=== PATIENT | female | born 1990 | race African-American/Black ===

== ENCOUNTER 2024-06-05 11:48 | Outpatient (CLI) | payer OTHER, SELFPAY ==
--- NOTE | 2024-06-05 | ECG_ITS ---
Test Date: 2024-06-05 12:19:00 Measurements Intervals [place] Rate: 57 P: 15 KS: 198 QRS: -64 QRSD: 90 T: -46 QT: 375 QTc: 366 Interpretive Statements SINUS BRADYCARDIA LEFT AXIS DEVIATION [QRS AXIS < -30] LOW QRS VOLTAGE IN PRECORDIAL LEADS [QRS DEFLECTION < 1.0 mV IN CHEST LEADS] MODERATE T-WAVE ABNORMALITY, CONSIDER ANTERIOR ISCHEMIA [-0.1+ mV T-WAVE IN V3/V4] No previous ECG available for comparison Electronically Signed On 06-05-2024 13:07:42 [employer] by Kristal Austin M.D.
--- NOTE | ~2024-06-05 | XR_ITS ---
XR chest 2V Ordering provider: Jerrica France History: 34 years Female with . 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 Comparison: None. FINDINGS: MEDIASTINUM: The cardiac silhouette is not enlarged. Device projected over the left hemithorax. LUNGS: No infiltrates, effusions or pneumothorax. OTHER: No free air under the diaphragm. IMPRESSION: No acute cardiopulmonary pathology. Reviewed, dictated and finalized at location A. R [employer]ATE [employer]
== END 2024-06-05 11:49 | disposition home or self-care (01) ==
DX: R94.31 Abnormal electrocardiogram [ECG] [EKG] (principal); R06.09 Other forms of dyspnea; R00.2 Palpitations
CPT/HCPCS: 71046; 93005; 93242

== ENCOUNTER 2024-08-12 09:28 | Outpatient (CLI) | payer OTHER, SELFPAY ==
--- OUTSIDE RECORDS SUMMARY | 2024-08-12 09:32 | XMS_ITS | Data Portability ---
[facility] [address] [place] [address] Assessment No assessment recorded. Plan of Treatment Reminders Order Date Submit Date Provider Last Modified By Organization Details Last Modified Time Details Appointments None recorded. Lab TSH, ultra-sensi tive, serum 2024 025 [facility], [address], [place], [address], 5 06:21:31 CBC w/ auto diff 2024 025 [facility], [address], [place], [address], 5 06:21:32 BMP, serum or plasma 2024 025 [facility], [address], [place], [address], 5 06:21:29 vaginal pathogens panel, CHAYITO+probe, vaginal fluid 2023 024 [facility], [address], [place], [address], 4 06:18:45 cytology report, thin prep, smear or scraping, cervical or vaginal 2023 024 [facility], [address], [place], [address], 4 17:10:00 unlisted lab - HBsAg+hcvab +HIV+TP abs 2023 024 RIAN Dailey, [address], [place], [address], 4 20:09:51 lh + FSH, serum 2023 024 RIAN Dailey, [address], [place], [address], 4 20:09:58 prolactin, serum 2023 024 RIAN Dailey, [address], [place], [address], 4 20:09:56 TSH + free T4, serum 2023 024 RIAN Dailey, [address], [place], [address], 4 20:09:50 TSH, serum or plasma 2023 024 RIAN Dailey, [address], [place], [address], 4 15:09:34 CBC 2023 024 RIAN Dailey, [address], [place], [address], 4 20:09:57 lipid panel, serum 2023 024 R[facility] Dailey, [address], [place], [address], 4 20:09:52 CMP, serum or plasma 2023 024 RIAN Dailey, [address], [place], [address], 4 20:09:53 HbA1c (hemoglobin A1c), blood 2023 024 [facility], [address], [place], [address], 4 20:09:55 Referral obstetricia n and gynecologis t referral 2024 025 [facility], [address], [place], [address], 5 16:16:31 Procedures None recorded. Surgeries None recorded. Imaging holter monitor - 3 day holter 2024 025 [facility], [address] [place] [address], [facility] [address], [place], [address], 5 19:44:27 XR, chest, 2 view 2024 025 [facility], [address] [place] [address], [facility] [address], [place], [address], 5 20:26:43 electrocard iogram 2024 025 [facility], [address] [place] [address], [facility] [address], [place], [address], 5 10:59:01 US, pelvis, transabdomi nal + transvagina l 2023 024 [email or web address] n1 [facility], [address] [facility] , [place], [address], 5 11:25:05 US, hysterosalp ingogram 2023 024 [email or web address] n1 [facility], [address] [facility], [address] [facility], [place], [address], 5 11:25:06 Medication Orders None recorded. Patient TargetsNo targets recorded. Patient Instructions Encounter Date Encounter Id Patient Instructions Last Modified By Organization Details Last Modified Time 05/31/2024 [id number] eating healthy foods: care instructions geno Not available 05/31/2024 10:09:22 I personally saw and examined the patient with the resident. I agree with the note and plan as documented. Shine Steinberg MD. 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 Referring Physician: Nathan Reed, Gi Tech, Encounter Date: 05/31/2024 Results Created Date Observation Date Name Description Value Unit Range Abnormal Flag Note LastModifiedBy Organization Detail LastModifiedTime 03/01/2003/02/2024 NUSWA B VAGIN ITIS PLUS (VG+) atopobium vaginae HIGH - 2 score abnormal Not Available [facility] ([facility]) [address] [place], [address], 03/03/2024 06:18:44 03/01/20 24 03/02/2024 NUSWA B VAGIN ITIS PLUS (VG+) bvab 2 LOW - 0 score Not Available [facility] ([facility]) [address] [facility], [place], [address], 03/03/2024 06:18:44 03/01/20 24 03/02/2024 NUSWA B VAGIN ITIS PLUS (VG+) megasphaera 1 LOW - 0 score Calcu late total score by irina g the 3 indiv idual bacte rial vagin osis (BV) marke r score s toget her. Total score is inter prete d as follo ws: Total score 0-1: Indic ates the absen ce of BV. Total score 2: Indet ermin ate for BV. Addit ional clini georgina data shoul d be evalu ated to estab cesra a diagn osis. Total score 3-6: Indic ates the prese nce of BV. Not Available [facility] ([facility]) [address] [facility], [place], [address], 03/03/2024 06:18:44 03/01/2003/02/2024 NUSWA B VAGIN ITIS PLUS (VG+) jennifer albicans, CHAYITO POSITI VE negati ve abnormal Not Available [facility] ([facility]) [address] [facility], [place], [address], 03/03/2024 06:18:44 03/01/2003/02/2024 NUSWA B VAGIN ITIS PLUS (VG+) jennifer glabrata, CHAYITO NEGATI VE negati ve Not Available [facility] ([facility]) [address] [facility], [place], [address], 03/03/2024 06:18:44 03/01/2003/03/2024 NUA B VAGIN ITIS PLUS (VG+) trich vag by CHAYITO NEGATI VE negati ve Not Available [facility] ([facility]) [address] [facility], [place], [address], 03/03/2024 06:18:44 03/01/2003/03/2024 NUA B VAGIN ITIS PLUS (VG+) chlamydia trachomatis, CHAYITO NEGATI VE negati ve Not Available [facility] ([facility]) [address] [facility], [place], [address], 03/03/2024 06:18:44 03/01/2003/03/2024 NUA B VAGIN ITIS PLUS (VG+) neisseria gonorrhoeae, CHAYITO NEGATI VE negati ve Not Available [facility] ([facility]) [address] [facility], [place], [address], 03/03/2024 06:18:44 03/01/2003/02/2024 INTER PRETA TION: interpretati on: Commen t Not infec lisbet with HCV unles s early or acute infec tion is suspe cted (whic h may be delay ed in an immun ocomp romis ed indiv idual ), or other evide nce exist s to indic ate HCV infec tion. Not Available [facility] ([facility]) [address] [facility], [place], [address], 03/03/2024 20:09:49 03/01/20 24 03/02/2024 TSH+F REE T4 TSH 1.880 uIU/m L 0.450- 4.500 Not Available [facility] ([facility]) [address] [facility], [place], [address], 03/03/2024 20:09:50 03/01/20 24 03/02/2024 TSH+F REE T4 T4,free(dire ct) 1.04 NG/dL 0.82-1 .77 Not Available [facility] ([facility]) [address] [facility], [place], [address], 03/03/2024 20:09:50 03/01/20 24 03/02/2024 HBSAG +HCVA B+HIV +TP ABS HBsAg screen NEGATI VE negati ve Not Available [facility] ([facility]) [address] [facility], [place], [address], 03/03/2024 20:09:51 03/01/20 24 03/02/2024 HBSAG +HCVA B+HIV +TP ABS HCV Ab NON REACTI VE nonrea ctive Not Available [facility] ([facility]) [address] [place], [address], 03/03/2024 20:09:51 03/01/20 24 03/02/2024 HBSAG +HCVA B+HIV +TP ABS HIV Ab/P24 Ag screen NON REACTI VE nonrea ctive HIV-1 /HIV- 2 antib odies and HIV-1 p24 antig en were NOT detec lisbet. There is no labor atory evide nce of HIV infec tion. HIV Negat nabil Not Available [facility] ([facility]) [address] [facility], [place], [address], 03/03/2024 20:09:51 03/01/2003/03/2024 HBSAG +HCVA B+HIV +TP ABS T pallidum antibodies NON REACTI VE nonrea ctive Not Available [facility] ([facility]) [address] [facility], [place], [address], 03/03/2024 20:09:51 03/01/20 24 03/02/2024 LIPID PANEL cholesterol, total 169 mg/dL 100-19 9 Not Available [facility] ([facility]) [address] [place], [address], 03/03/2024 20:09:52 03/01/2003/02/2024 LIPID PANEL triglyceride s 53 mg/dL 0-149 Not Available [facility] ([facility]) [address] [place], [address], 03/03/2024 20:09:52 03/01/20 24 03/02/2024 LIPID PANEL HDL cholesterol 78 mg/dL >39 Not Available [facility]) [address] [place], [address], 03/03/2024 20:09:52 03/01/20 24 03/02/2024 LIPID PANEL VLDL cholesterol georgina 11 mg/dL 5-40 Not Available [facility] ([facility]) [address] [place], [address], 03/03/2024 20:09:52 03/01/20 24 03/02/2024 LIPID PANEL LDL chol calc ([facility]) 80 mg/dL 0-99 Not Available [facility] ([facility]) [address] [place], [address], 03/03/2024 20:09:52 03/01/20 24 03/02/2024 COMP. METAB OLIC PANEL (14) glucose 74 mg/dL 70-99 Not Available [facility] ([facility]) [address] [place], [address], 03/03/2024 20:09:53 03/01/20 24 03/02/2024 COMP. METAB OLIC PANEL (14) BUN 13 mg/dL 6-20 Not Available [facility] ([facility]) [address] [facility], [place], [address], 03/03/2024 20:09:53 03/01/20 24 03/02/2024 COMP. METAB OLIC PANEL (14) creatinine 0.78 mg/dL 0.57-1 .00 Not Available [facility] ([facility]) [address] [facility], [place], [address], 03/03/2024 20:09:53 03/01/20 24 03/02/2024 COMP. METAB OLIC PANEL (14) eGFR 102 mL/mi n/1.7 3 >59 Not Available [facility] ([facility]) [address] [facility], [place], [address], 03/03/2024 20:09:53 03/01/20 24 03/02/2024 COMP. METAB OLIC PANEL (14) BUN/creatini ne ratio 17 9-23 Not Available [facility] ([facility]) [address] [facility], [place], [address], 03/03/2024 20:09:53 03/01/20 24 03/02/2024 COMP. METAB OLIC PANEL (14) sodium 139 mmol/ L 134-14 4 Not Available [facility] ([facility]) [address] [facility], [place], [address], 03/03/2024 20:09:53 03/01/20 24 03/02/2024 COMP. METAB OLIC PANEL (14) potassium 3.9 mmol/ L 3.5-5. 2 Not Available [facility] ([facility]) [address] [place], [address], 03/03/2024 20:09:53 03/01/20 24 03/02/2024 COMP. METAB OLIC PANEL (14) chloride 104 mmol/ L 96-106 Not Available [facility] ([facility]) [address] [facility] [place], [address], 03/03/2024 20:09:53 03/01/20 24 03/02/2024 COMP. METAB OLIC PANEL (14) carbon dioxide, total 21 mmol/ L 20-29 Not Available [facility] ([facility]) [address] [facility] [place], [address], 03/03/2024 20:09:53 03/01/20 24 03/02/2024 COMP. METAB OLIC PANEL (14) calcium 9.2 mg/dL 8.7-10 .2 Not Available [facility] ([facility]) [address] [place], [address], 03/03/2024 20:09:53 03/01/20 24 03/02/2024 COMP. METAB OLIC PANEL (14) protein, total 7.6 g/dL 6.0-8. 5 Not Available [facility] ([facility]) [address] [facility] [place], [address], 03/03/2024 20:09:53 03/01/20 24 03/02/2024 COMP. METAB OLIC PANEL (14) albumin 4.6 g/dL 3.9-4. 9 Not Available [facility] ([facility]) [address] [facility] [place], [address], 03/03/2024 20:09:53 03/01/20 24 03/02/2024 COMP. METAB OLIC PANEL (14) globulin, total 3.0 g/dL 1.5-4. 5 Not Available [facility] ([facility]) [address] [facility], [address], 03/03/2024 20:09:53 03/01/20 24 03/02/2024 COMP. METAB OLIC PANEL (14) bilirubin, total 0.5 mg/dL 0.0-1. 2 Not Available [facility] ([facility]) [address] [place], [address], 03/03/2024 20:09:53 03/01/20 24 03/02/2024 COMP. METAB OLIC PANEL (14) alkaline phosphatase 63 IU/L 44-121 Not Available [facility] ([facility]) [address] [place], [address], 03/03/2024 20:09:53 03/01/20 24 03/02/2024 COMP. METAB OLIC PANEL (14) AST (SGOT) 17 IU/L 0-40 Not Available [facility] ([facility]) [address] [place], [address], 03/03/2024 20:09:53 03/01/20 24 03/02/2024 COMP. METAB OLIC PANEL (14) ALT (SGPT) 19 IU/L 0-32 Not Available [facility] ([facility]) [address] [place], [address], 03/03/2024 20:09:53 03/01/20 24 03/02/2024 HEMOG LOBIN A1C hemoglobin A1C 5.3 % 4.8-5. 6 Predi abete s: 5.7 - 6.4 Diabe calvin: >6.4 Glyce ravindra contr ol for adult s with diabe calvin: <7.0 Not Available [facility] ([facility]) [address] [place], [address], 03/03/2024 20:09:54 03/01/20 24 03/02/2024 PROLA CTIN prolactin 14.3 NG/mL 4.8-33 .4 Not Available [facility] ([facility]) [address] [place], [address], 03/03/2024 20:09:56 03/01/20 24 03/02/2024 CBC, PLATE LET, NO DIFFE RENTI AL WBC 6.0 x10e3 /uL 3.4-10 .8 Not Available [facility] ([facility]) [address] [facility], [place], [address], 03/03/2024 20:09:57 03/01/20 24 03/02/2024 CBC, PLATE LET, NO DIFFE RENTI AL RBC 4.46 x10e6 /uL 3.77-5 .28 Not Available [facility] ([facility]) [address] [facility], [place], [address], 03/03/2024 20:09:57 03/01/2003/02/2024 CBC, PLATE LET, NO DIFFE RENTI AL hemoglobin 13.2 g/dL 11.1-1 5.9 Not Available [facility] ([facility]) [address] [facility], [place], [address], 03/03/2024 20:09:57 03/01/2003/02/2024 CBC, PLATE LET, NO DIFFE RENTI AL hematocrit 41.9 % 34.0-4 6.6 Not Available [facility] ([facility]) [address] [facility], [place], [address], 03/03/2024 20:09:57 03/01/20 24 03/02/2024 CBC, PLATE LET, NO DIFFE RENTI AL MCV 94 fL 79-97 Not Available [facility] ([facility]) [address] [facility], [place], [address], 03/03/2024 20:09:57 03/01/20 24 03/02/2024 CBC, PLATE LET, NO DIFFE RENTI AL MCH 29.6 pg 26.6-3 3.0 Not Available [facility] ([facility]) [address] [facility], [place], [address], 03/03/2024 20:09:57 03/01/20 24 03/02/2024 CBC, PLATE LET, NO DIFFE RENTI AL MCHC 31.5 g/dL 31.5-3 5.7 Not Available [facility] ([facility]) [address] [facility], [place], [address], 03/03/2024 20:09:57 03/01/20 24 03/02/2024 CBC, PLATE LET, NO DIFFE RENTI AL RDW 11.8 % 11.7-1 5.4 Not Available [facility] ([facility]) [address] [facility], [place], [address], 03/03/2024 20:09:57 03/01/20 24 03/02/2024 CBC, PLATE LET, NO DIFFE RENTI AL platelets 129 x10e3 /uL 150-45 0 below low normal Actua l plate let count may be somew hat highe r than repor lisbet due to aggre gatio n of plate lets in this sampl e. Not Available [facility] ([facility]) [address] [facility], [place], [address], 03/03/2024 20:09:57 03/01/20 24 03/02/2024 CBC, PLATE LET, NO DIFFE RENTI AL hematology comments: NOTE: Verif ied by jackie mccullough n. Not Available [facility] ([facility]) [address] [facility], [place], [address], 03/03/2024 20:09:57 03/01/20 24 03/02/2024 FSH AND LH LH 4.5 mIU/m L Adult Femal e Range Folli cular phase 2.4 - 12.6 Ovula tion phase 14.0 - 95.6 Lutea l phase 1.0 - 11.4 Postm enopa usal 7.7 - 58.5 Not Available [facility] ([facility]) [address] [place], [address], 03/03/2024 20:09:58 03/01/20 24 03/02/2024 FSH AND LH FSH 2.5 mIU/m L Adult Femal e Range Folli cular phase 3.5 - 12.5 Ovula tion phase 4.7 - 21.5 Lutea l phase 1.7 - 7.7 Postm enopa usal 25.8 - 134.8 Not Available [facility] ([facility]) [address] [facility], [place], [address], 03/03/2024 20:09:58 03/01/20 24 03/02/2024 IGP, APTIM A HPV, RFX 16/18 ,45 HPV aptima NEGATI VE negati ve This nucle ic acid ampli ficat ion test detec ts fourt een high- risk HPV types (16,1 8,31, 33,35 ,39,4 5,51, 52,56 ,58,5 9,66, 68) witho ut diffe renti ation . Not Available [facility] ([facility]) [address] [facility], [place], [address], 03/06/2024 17:09:59 03/01/2003/06/2024 IGP, APTIM A HPV, RFX 16/18 ,45 diagnosis: COMMEN T NEGAT NABIL FOR INTRA EPITH ELIAL LESIO N OR ZAMZAM MARIE . Not Available [facility] ([facility]) [address] [facility], [place], [address], 03/06/2024 17:09:59 03/01/2003/06/2024 IGP, APTIM A HPV, RFX 16/18 ,45 specimen adequacy: COMMEN T Satis facto ry for evalu ation . Endoc ervic al and/o r squam ous metap lasti c cells (endo cervi georgina compo nent) are prese nt. Not Available [facility] ([facility]) [address] [facility], [place], [address], 03/06/2024 17:09:59 03/01/20 24 03/06/2024 IGP, APTIM A HPV, RFX 16/18 ,45 clinician provided ICD10: COMMEN T Z01.4 19 N97.9 Not Available [facility] ([facility]) [address] [facility], [place], [address], 03/06/2024 17:09:59 03/01/2003/06/2024 IGP, APTIM A HPV, RFX 16/18 ,45 performed by: FLASH ramirez, Cytomelia cárdenas (ASCP ) Not Available [facility] ([facility]) [address] [place], [address], 03/06/2024 17:09:59 03/01/2003/06/2024 IGP, APTIM A HPV, RFX 16/18 ,45 . . Not Available [facility] ([facility]) [address] [facility], [place], [address], 03/06/2024 17:09:59 03/01/2003/06/2024 IGP, APTIM A HPV, RFX 16/18 ,45 note: FLASH Cárdenas The Pap smear is a scree bo test desig rolanda to aid in the detec tion of jaime ligna nt and malig nant condi tions of the uteri ne cervi x. It is not a diagn ostic proce dure and shoul d not be used as the sole means of detec ting cervi georgina cance r. Both false -posi tive and false -nega tive repor ts do occur . Not Available [facility] ([facility]) [address] [facility], [place], [address], 03/06/2024 17:09:59 03/01/2003/06/2024 IGP, APTIM A HPV, RFX 16/18 ,45 test methodology: FLASH Cárdenas This liqui d based ThinP rep(R ) pap test was scree rolanda with the use of an image guide david farah. Not Available [facility] ([facility]) [address] [facility], [place], [address], 03/06/2024 17:09:59 03/01/20 24 03/06/2024 IGP, APTIM A HPV, RFX 16/18 ,45 HPV genotype reflex COMMEN T Crite brittanie not met, HPV Genot ype not perfo rmed. Not Available [facility] ([facility]) [address] [facility], [place], [address], 03/06/2024 17:09:59 03/01/20 24 03/11/2024 THYRO ID STIMU LATIN G HORMO NE TSH-icma 1.8 uu/mL Refer ence Range : Non-P regna nt Adult 0.450 -4.50 0 Pregn edu First Trime ster 0.100 -4.00 0 Secon d Trime ster 0.200 -4.00 0 Third Trime ster 0.300 -4.50 0 Not Available [facility] [address] [facility], [place], [address], 03/11/2024 15:09:34 03/20/20 24 03/21/2024 D-DIM ER D-dimer 0.64 mg/L_ feu 0.00-0 .49 above high normal Accor ding to the assay manuf actur er's publi shed packa ge inser t, a trevor l (<0.5 0 mg/L FEU) D-dim er resul t in conju nctio n with a non-h igh clini georgina proba bilit y asses sment , exclu patricia deep vein throm bosis (DVT) and pulmo nary embol ism (PE) with high sensi tivit y. D-dim er value s incre ase with age and this can make VTE exclu nuvia of an older popul ation diffi cult. To addre ss this, the Ameri can Colle ge of Physi cians , based on best avail able evide nce and recen t guide lines , recom mends that clini cians use age-a djust ed D-dim er thres holds in patie nts great er than 50 years of age with: a) a low proba bilit y of PE who do not meet all Pulmo nary Embol ism Rule Out Crite brittanie, or b) in those with inter media te proba bilit y of PE. The formu la for an age-a djust ed D-dim er cut-o ff is age/ 100 . For examp le, a 60 year old patie nt would have an age-a djust ed cut-o ff of 0.60 mg/L FEU and an 80 year old 0.80 mg/L FEU. Not Available [facility] ([facility]) [address] [facility], [place], [address], 03/21/2024 10:37:01 03/20/2003/23/2024 PROTH ROMBI N TIME, INR prothrombin time 12.5 sec above high normal Refer ence Range : 18 years and older : 9.1 - 12.0 Not Available [facility] [address] [place], [address], 03/24/2024 03:08:41 03/20/2003/23/2024 PROTH ROMBI N TIME, INR INR 1.1 ratio Refer ence Range : >1 month : 0.9 - 1.2 Not Available [facility] [address] [place], [address], 03/24/2024 03:08:41 03/20/20 24 03/21/2024 VITAM IN B12 AND FOLAT E vitamin B12 685 pg/mL 232-12 45 Not Available [facility] [address] [place], [address], 03/24/2024 03:08:42 03/20/2003/21/2024 VITAM IN B12 AND FOLAT E folate (folic acid), serum 12.1 NG/mL >3.0 A serum folat e tono ntrat ion of less than 3.1 ng/mL is consi dered to repre sent clini georgina defic iency . Not Available [facility] [address] [place], [address], 03/24/2024 03:08:42 03/20/2003/21/2024 LDH LDH 176 IU/L 119-22 6 Not Available [facility] [address] [place], [address], 03/24/2024 03:08:43 03/20/2003/21/2024 FIBRI NOGEN ACTIV ITY fibrinogen activity 221 mg/dL 193-50 7 Not Available [facility] [address] [place], [address], 03/24/2024 03:08:44 03/20/2003/21/2024 CBC WITH DIFFE RENTI AL/PL ATELE T WBC 3.9 x10e3 /uL 3.4-10 .8 Cecile ified by daquan bowen Not Available [facility] [address] [place], [address], 03/24/2024 03:08:45 03/20/2003/21/2024 CBC WITH DIFFE RENTI AL/PL ATELE T RBC 4.55 x10e6 /uL 3.77-5 .28 Not Available [facility] [address] [place], [address], 03/24/2024 03:08:45 03/20/2003/21/2024 CBC WITH DIFFE RENTI AL/PL ATELE T hemoglobin 13.6 g/dL 11.1-1 5.9 Not Available [facility] [address] [place], [address], 03/24/2024 03:08:45 03/20/2003/21/2024 CBC WITH DIFFE RENTI AL/PL ATELE T hematocrit 42.1 % 34.0-4 6.6 Not Available [facility] [address] [place], [address], 03/24/2024 03:08:45 03/20/20 24 03/21/2024 CBC WITH DIFFE RENTI AL/PL ATELE T MCV 93 fL 79-97 Not Available [facility] [address] [place], [address], 03/24/2024 03:08:45 03/20/20 24 03/21/2024 CBC WITH DIFFE RENTI AL/PL ATELE T MCH 29.9 pg 26.6-3 3.0 Not Available [facility] [address] [place], [address], 03/24/2024 03:08:45 03/20/20 24 03/21/2024 CBC WITH DIFFE RENTI AL/PL ATELE T MCHC 32.3 g/dL 31.5-3 5.7 Not Available [facility] [address] [place], [address], 03/24/2024 03:08:45 03/20/2003/21/2024 CBC WITH DIFFE RENTI AL/PL ATELE T RDW 12.1 % 11.7-1 5.4 Not Available [facility] [address] [place], [address], 03/24/2024 03:08:45 03/20/20 24 03/21/2024 CBC WITH DIFFE RENTI AL/PL ATELE T platelets 127 x10e3 /uL 150-45 0 below low normal Actua l plate let count may be somew hat highe r than repor lisbet due to aggre gatio n of plate lets in this sampl e. Not Available [facility] [address] [place], [address], 03/24/2024 03:08:45 03/20/2003/21/2024 CBC WITH DIFFE RENTI AL/PL ATELE T neutrophils 27 % notest ab. Not Available [facility] [address] [place], [address], 03/24/2024 03:08:45 03/20/20 24 03/21/2024 CBC WITH DIFFE RENTI AL/PL ATELE T lymphs 56 % notest ab. Not Available [facility] [address] [place], [address], 03/24/2024 03:08:45 03/20/20 24 03/21/2024 CBC WITH DIFFE RENTI AL/PL ATELE T monocytes 8 % notest ab. Not Available [facility] [address] [place], [address], 03/24/2024 03:08:45 03/20/2003/21/2024 CBC WITH DIFFE RENTI AL/PL ATELE T eos 7 % notest ab. Not Available [facility] [address] [place], [address], 03/24/2024 03:08:45 03/20/20 24 03/21/2024 CBC WITH DIFFE RENTI AL/PL ATELE T basos 2 % notest ab. Not Available [facility] [address] [place], [address], 03/24/2024 03:08:45 03/20/20 24 03/21/2024 CBC WITH DIFFE RENTI AL/PL ATELE T neutrophils (absolute) 1.1 x10e3 /uL 1.4-7. 0 below low normal Not Available [facility] [address] [place], [address], 03/24/2024 03:08:45 03/20/20 24 03/21/2024 CBC WITH DIFFE RENTI AL/PL ATELE T lymphs (absolute) 2.2 x10e3 /uL 0.7-3. 1 Not Available [facility] [address] [place], [address], 03/24/2024 03:08:45 03/20/20 24 03/21/2024 CBC WITH DIFFE RENTI AL/PL ATELE T monocytes(ab solute) 0.3 x10e3 /uL 0.1-0. 9 Not Available [facility] [address] [place], [address], 03/24/2024 03:08:45 03/20/2003/21/2024 CBC WITH DIFFE RENTI AL/PL ATELE T eos (absolute) 0.3 x10e3 /uL 0.0-0. 4 Not Available [facility] [address] [place], [address], 03/24/2024 03:08:45 03/20/2003/21/2024 CBC WITH DIFFE RENTI AL/PL ATELE T baso (absolute) 0.1 x10e3 /uL 0.0-0. 2 Not Available [facility] [address] [place], [address], 03/24/2024 03:08:45 03/20/20 24 03/21/2024 CBC WITH DIFFE RENTI AL/PL ATELE T immature granulocytes 0 % notest ab. Not Available [facility] [address] [place], [address], 03/24/2024 03:08:45 03/20/2003/21/2024 CBC WITH DIFFE RENTI AL/PL ATELE T immature grans (abs) 0.0 x10e3 /uL 0.0-0. 1 Not Available [facility] [address] [place], [address], 03/24/2024 03:08:45 03/20/2003/21/2024 CBC WITH DIFFE RENTI AL/PL ATELE T hematology comments: NOTE: Verif ied by jackie mccullough n. Not Available [facility] [address] [place], [address], 03/24/2024 03:08:45 03/20/2003/21/2024 PT AND PTT INR 1.1 0.9-1. 2 Refer ence inter jana is for non-a ntico agula lisbet patie nts. Sugge sted INR thera peuti c range for Vitam in K antag onist thera py: Stand sanju Dose (mode rate inten sity thera peuti c range ): 2.0 - 3.0 Highe r inten sity thera peuti c range 2.5 - 3.5 Not Available [facility] [address] [place], [address], 03/24/2024 03:08:47 03/20/20 24 03/21/2024 PT AND PTT prothrombin time 12.2 sec 9.1-12 .0 above high normal Not Available [facility] [address] [place], [address], 03/24/2024 03:08:47 03/20/20 24 03/21/2024 PT AND PTT APTT 29 sec 24-33 This test has not been valid ated for monit oring unfra ction ated hepar in thera py. aPTT- based thera peuti c range s for unfra ction ated hepar in thera py have not been estab gulshan rose For gener al guide lines on Hepar in monit oring , refer to the [facility]. Not Available [facility] [address] [place], [address], 03/24/2024 03:08:47 05/31/19 25 06/01/2024 BASIC METAB OLIC PANEL (8) glucose 84 mg/dL 70-99 Not Available [facility] ([facility]) [address] [place], [address], 06/01/2024 06:21:29 05/31/19 25 06/01/2024 BASIC METAB OLIC PANEL (8) BUN 8 mg/dL 6-20 Not Available [facility] ([facility]) [address] [place], [address], 06/01/2024 06:21:29 05/31/1906/01/2024 BASIC METAB OLIC PANEL (8) creatinine 0.76 mg/dL 0.57-1 .00 Not Available [facility] ([facility]) [address] [place], [address], 06/01/2024 06:21:29 05/31/19 25 06/01/2024 BASIC METAB OLIC PANEL (8) eGFR 105 mL/mi n/1.7 3 >59 Not Available [facility] ([facility]) [address] [facility], [address], 06/01/2024 06:21:29 05/31/1906/01/2024 BASIC METAB OLIC PANEL (8) BUN/creatini ne ratio 11 9-23 Not Available [facility] ([facility]) [address] [facility] [place], [address], 06/01/2024 06:21:29 05/31/1906/01/2024 BASIC METAB OLIC PANEL (8) sodium 140 mmol/ L 134-14 4 Not Available [facility] ([facility]) [address] [facility] [place], [address], 06/01/2024 06:21:29 05/31/1906/01/2024 BASIC METAB OLIC PANEL (8) potassium 4.1 mmol/ L 3.5-5. 2 Not Available [facility] ([facility]) [address] [facility] [place], [address], 06/01/2024 06:21:29 05/31/1906/01/2024 BASIC METAB OLIC PANEL (8) chloride 106 mmol/ L 96-106 Not Available [facility] ([facility]) [address] [facility] [place], [address], 06/01/2024 06:21:29 01/08/06/01/2024 BASIC METAB OLIC PANEL (8) carbon dioxide, total 25 mmol/ L 20-29 Not Available [facility] ([facility]) [address] [place], [address], 06/01/2024 06:21:29 05/31/19 25 06/01/2024 BASIC METAB OLIC PANEL (8) calcium 9.4 mg/dL 8.7-10 .2 Not Available [facility] ([facility]) [address] [facility], [place], [address], 06/01/2024 06:21:29 05/31/1906/01/2024 TSH RFX ON ABNOR MAL TO FREE T4 TSH 4.250 uIU/m L 0.450- 4.500 Not Available [facility] ([facility]) [address] [place], [address], 06/01/2024 06:21:31 05/31/19 25 05/31/2024 CBC WITH DIFFE RENTI AL/PL ATELE T WBC 3.5 x10e3 /uL 3.4-10 .8 Not Available [facility] ([facility]) [address] [place], [address], 06/01/2024 06:21:32 05/31/19 25 05/31/2024 CBC WITH DIFFE RENTI AL/PL ATELE T RBC 4.02 x10e6 /uL 3.77-5 .28 Not Available [facility] ([facility]) [address] [place], [address], 06/01/2024 06:21:32 05/31/19 25 05/31/2024 CBC WITH DIFFE RENTI AL/PL ATELE T hemoglobin 12.1 g/dL 11.1-1 5.9 Not Available [facility] ([facility]) [address] [place], [address], 06/01/2024 06:21:32 05/31/19 25 05/31/2024 CBC WITH DIFFE RENTI AL/PL ATELE T hematocrit 37.2 % 34.0-4 6.6 Not Available [facility] ([facility]) [address] [place], [address], 06/01/2024 06:21:32 05/31/19 25 05/31/2024 CBC WITH DIFFE RENTI AL/PL ATELE T MCV 93 fL 79-97 Not Available [facility] ([facility]) [address] [place], [address], 06/01/2024 06:21:32 05/31/1905/31/2024 CBC WITH DIFFE RENTI AL/PL ATELE T MCH 30.1 pg 26.6-3 3.0 Not Available [facility] ([facility]) [address] [place], [address], 06/01/2024 06:21:32 05/31/19 25 05/31/2024 CBC WITH DIFFE RENTI AL/PL ATELE T MCHC 32.5 g/dL 31.5-3 5.7 Not Available [facility] ([facility]) [address] [place], [address], 06/01/2024 06:21:32 05/31/1905/31/2024 CBC WITH DIFFE RENTI AL/PL ATELE T RDW 12.0 % 11.7-1 5.4 Not Available [facility] ([facility]) [address] [place], [address], 06/01/2024 06:21:32 05/31/1905/31/2024 CBC WITH DIFFE RENTI AL/PL ATELE T platelets 136 x10e3 /uL 150-45 0 below low normal Not Available [facility] ([facility]) [address] [place], [address], 06/01/2024 06:21:32 05/31/19 25 05/31/2024 CBC WITH DIFFE RENTI AL/PL ATELE T neutrophils 34 % notest ab. Not Available [facility] ([facility]) [address] [facility], [place], [address], 06/01/2024 06:21:32 05/31/19 25 05/31/2024 CBC WITH DIFFE RENTI AL/PL ATELE T lymphs 48 % notest ab. Not Available [facility] ([facility]) [address] [facility], [place], [address], 06/01/2024 06:21:32 05/31/19 25 05/31/2024 CBC WITH DIFFE RENTI AL/PL ATELE T monocytes 9 % notest ab. Not Available [facility] ([facility]) [address] [facility], [place], [address], 06/01/2024 06:21:32 05/31/19 25 05/31/2024 CBC WITH DIFFE RENTI AL/PL ATELE T eos 8 % notest ab. Not Available [facility] ([facility]) [address] [facility], [place], [address], 06/01/2024 06:21:32 05/31/19 25 05/31/2024 CBC WITH DIFFE RENTI AL/PL ATELE T basos 1 % notest ab. Not Available [facility] ([facility]) [address] [facility], [place], [address], 06/01/2024 06:21:32 05/31/1905/31/2024 CBC WITH DIFFE RENTI AL/PL ATELE T neutrophils (absolute) 1.2 x10e3 /uL 1.4-7. 0 below low normal Not Available [facility] ([facility]) [address] [facility], [place], [address], 06/01/2024 06:21:32 05/31/19 25 05/31/2024 CBC WITH DIFFE RENTI AL/PL ATELE T lymphs (absolute) 1.7 x10e3 /uL 0.7-3. 1 Not Available [facility] ([facility]) [address] [facility], [place], [address], 06/01/2024 06:21:32 05/31/19 25 05/31/2024 CBC WITH DIFFE RENTI AL/PL ATELE T monocytes(ab solute) 0.3 x10e3 /uL 0.1-0. 9 Not Available [facility] ([facility]) [address] [facility], [place], [address], 06/01/2024 06:21:32 05/31/19 25 05/31/2024 CBC WITH DIFFE RENTI AL/PL ATELE T eos (absolute) 0.3 x10e3 /uL 0.0-0. 4 Not Available [facility] ([facility]) [address] [facility], [place], [address], 06/01/2024 06:21:32 05/31/19 25 05/31/2024 CBC WITH DIFFE RENTI AL/PL ATELE T baso (absolute) 0.1 x10e3 /uL 0.0-0. 2 Not Available [facility] ([facility]) [address] [facility], [place], [address], 06/01/2024 06:21:32 05/31/19 25 05/31/2024 CBC WITH DIFFE RENTI AL/PL ATELE T immature granulocytes 0 % notest ab. Not Available [facility] ([facility]) [address] [facility], [place], [address], 06/01/2024 06:21:32 05/31/19 25 05/31/2024 CBC WITH DIFFE RENTI AL/PL ATELE T immature grans (abs) 0.0 x10e3 /uL 0.0-0. 1 Not Available [facility] ([facility]) [address] [facility], [place], [address], 06/01/2024 06:21:32 02/07/19/2024 Proge stero ne [Mass /volu me] in Serum or Plasm a progesterone proge stero ne Not Available Not Available 07/25/2024 14:43:28 06/05/1906/05/2024 XR, chest , 2 view No observ ation record ed. [facility] [address], [place], [address], 06/14/2024 11:23:32 06/06/19 25 06/05/2024 elect rocar diogr am No observ ation record ed. [facility] (Pulmonary) [address], [place], [address], 06/14/2024 11:23:33 06/13/19 25 06/05/2024 todd r monit or No observ ation record ed. [facility] (Pulmonary) [address], [place], [address], 06/15/2024 10:05:13 Result Notes None recorded. Problems Name Problem SNOMED Code Status Onset Date Resolution Date Notes Provider Name and Address Organization Details Recorded Time Bacterial vaginosis 298030877 Active 2023 NATHAN REED DO Attn: Stepan mcnamara,[address] [place], [address], [facility] - [facility] 5 10:27:37 Candidiasis of vagina 02869964 Active 2023 NATHAN REED DO Attn: Stepan mcnamara,[address] [place], [address], [place] - [facility] 5 10:27:37 Thrombocytopen ic disorder 379103203 Active 2023 NATHAN REED DO Attn: Stepan mcnamara,[address] [place], [address], [facility] - [facility] 5 10:27:52 Palpitations 17352999 Active 2024 NATHAN REED DO Attn: Stepan mcnamara,[address] [place], [address], [place] - [facility] 5 10:27:49 Dyspnea on exertion 97876857 Active 2024 NATHAN REED DO Attn: Stepan mcnamara,[address] [facility], [place], [address], [place] - [facility] 5 10:27:47 Obstruction of right fallopian tube 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 Procedures Surgical History Date Name Laterality Status Provider Name and Address Organization Details Recorded Time hemorrhoidectomy completed Mercy Alfaro MA MD - [facility] 03/01/2024 11:25:21 Imaging Results Imaging Date Name Status LastModified by Organization Details LastModified Time 06/05/2024 XR, chest, 2 view completed [address], [address], 06/14/2024 11:23:32 06/05/[address] [facility] (Pulmonary) [address] [place] [address], [address], 06/14/2024 11:23:33 06/05/2024 holter monitor completed [facility] (Pulmonary) [address] [place] [address], [address], 06/15/2024 10:05:13 Procedure Notes None recorded. Medical Equipment None Reported. Allergies No known drug allergies Medications Name Sig Start Date Stop Date Status Note LastModified by Organization Details LastModified Time fluconazole 150 mg tablet TAKE ONE TABLET BY MOUTH FOR INFECTION 05/31 completed Not Available Not Available Not Available metronidazo le 500 mg tablet TAKE 1 TABLET BY MOUTH TWICE DAILY FOR 7 DAYS FOR INFECTION 05/31 completed Not Available Not Available Not Available folic acid active Not Available Not Av ailable Not Available Vitals Date Recorded Body height Body mass index (BMI) Body weight Heart rate Respiratory rate Body temperature Systolic blood pressure Diastolic blood pressure Provider Name and Address Organization Details Last Updated DateTime 4 162.56 cm 17.6 kg/m2 28133.8 7 g 68 /min 18 /min 98.3 [degF] 110 mm[Hg] 73 mm[Hg] Mercy Alfaro MA [facility] 4 11:21:15 Date Recorded Body height Body mass index (BMI) Body weight Heart rate Respiratory rate Body temperature Systolic blood pressure Diastolic blood pressure Provider Name and Address Organization Details Last Updated DateTime 4 162.56 cm 18.1 kg/m2 73664 g 64 /min 18 /min 98.3 [degF] 109 mm[Hg] 74 mm[Hg] Mercy Alfaro MA [facility] 4 15:01:22 Date Recorded Body height Body mass index (BMI) Body weight Body temperature Oxygen saturation Oxygen saturation in Arterial blood by Pulse oximetry Respiratory rate Heart rate Systolic blood pressure Diastolic blood pressure Provider Name and Address Organization Details Last Updated DateTime 5 162.56 cm 18.3 kg/m2 81307.2 4 g 98.3 [degF] 97 % 97 % 20 /min 80 /min 108 mm[Hg] 71 mm[Hg] Mercy Alfaro MA [facility] 5 09:32:54 Social History Question Answer Notes LastModified by Organizat ion Details LastModified Time Tobacco Smoking Status Never Smoker Mercy Alfaro MA [facility], [facility] 03/01/2024 11:23:38 What Was The Date Of Your Most Recent Tobacco Screening? 05/31/2024 Information not available 05/31/2024 Has Tobacco Cessation Counseling Been Provided? Yes Information not available 03/01/2024 On What Date Was Tobacco Cessation Counseling Provided? 05/31/2024 Information not available 05/31/2024 Sex: Female Functional Status None recorded. Mental Status None recorded. Family History Nothing Reported. Medical History Condition Response Coronary Artery Disease N Other N High Blood Pressure N Atrial Fibrillation N Thyroid Problems N Kidney or Bladder Problems N GI Problems N Depression N COPD N Blood Clots N Have you had a mammogram in the last yea r? N Skin Problems N Eating Disorder N Anemia N Heart Attack ([place]) N Anxiety Disorder N Diabetes N Muscle, Joint, or Bone Problems N Arthritis N Seizures/Epilepsy N Have you had a colonoscopy in the last 1 0 years? N Acid Reflux (GERD) N Cancer N Stroke N Asthma N Allergies N Have you had a PSA blood test in the las t year? N ADHD N Substance Abuse N High Cholesterol N Hepatitis N Liver Disease N Schizophrenia N Headaches N Heart Failure N Osteoporosis N Gynecological History Statement/Question Response Date of LMP 05/29/2024 Age at First Child 14 Obstetrics History GPAL:G 0 P 0 0 0 0 Past Encounters Encounter ID Performer Location Encounter Start Date Encounter Closed Date Diagnosis/Indication Diagnosis SNOMED-CT Code Diagnosis ICD10 Code Diagnosis Note [id number] MD Ki Martinez 14 [address] [facility] [address] [place] [address] 03/01/2024 10:58:11 03/24/2024 12:46:53 Family planning surveillance 539704248 Z30.09 Ingrid is a 34 y/o G0 who presents to the clinic with her to discuss family planning. Couple have been trying for over 2 years, the duration of there marriage.- anticipato ry guidance, reassuranc e and education provided- surveillan ce labs pending- HSG pending- abdominal US pending- Pap and cultures pending- follow up pending results and/or as scheduled Fertility problem 201519 06 N97.9 Dyspareunia 87476433 N94 .10 Gynecologi c examination 77269627 Z01.804 [id number] MD Ki Martinez 14 IM 4 [facility] [address] [place], [place] [address] [address] 03/28/2024 14:50:25 04/10/2024 10:04:57 Thrombocytopenic disorder 670257413 D69.6 Family kit nning surveillance [id number] Z30.09 Ingrid is a 34 y/o G0 who presents to the clinic with her for follow-up discussion onfamily planning. Couple have been trying for over 2 years, the duration of there marriage. Review of labs consistent with thrombocyt openia that is most likely idiopathic . Patient vaginal swabs were positive for bacterial vaginosis and Jennifer which were adequately treated. Patient has undergone semen analysis earlier today. Results are pending.- anticipato ry guidance, reassuranc e and education provided-l abs reviewed- HSG remains pending- abdominal US remains pending-Pe nding results of imaging studies anticipate possible initiation of medication s such as Clomid, metformin- follow up pending results and/or as scheduled Fertility problem 800084 06 N97.9 [id number] LINDY Haskins 14 IM [address] [facility] [address] [place] [address] 05/31/2024 09:13:28 06/01/2024 10:13:50 Palpitations 49576569 R00.2 DDX: anxiety, cardiac, electrolyt e abnormalit ies, thyroid, anemiaIf it were anxiety, likely would not be just with exertionWi ll obtain labs since new symptoms since last labs in ain Holter, ECG and chest xrayGiven only with exertion, if work up negative consider treadmill stress test Obstructio n of right fallopian tube 347614938 N97.1 Non opacified right fallopian tube. Otherwise, normal hysterosal pingogram. Not convinced this is contributi ng to her infertilit y issuesWill send referral to OBGYN for further eval Dyspnea on exertion 6084 5006 R06.09 DDX: anxiety, cardiac, electrolyt e abnormalit ies, thyroid, anemiaWill obtain labs, new symptoms since last labs in ain Holter, ECG and chest xrayGiven only with exertion, if work up negative consider treadmill stress test Underweight 617472814 R6 3.6 Healthy lifestyle encouraged including regular exercise of at least 150min per week, diet rich in plant based foods and low in added sugars, processed carbohydra calvin, and high salt foods. Encouraged protein intake mostly with chicken and white fish and limited red meat. Health Concerns Section Related Observation LastModified by Organization Detai ls LastModified Time None Recorded Concern Status LastModified by Organization Details LastModified Time None Recorded Advance Directives Directive None Recorded Payers Encounter Date Sequence Insurance Name Policy Number Policy Lui Covered Member ID Lui Member ID Guarantor Name 03/01/2024 1 [facility] Carlos Eduardo Viera [id number] Ingrid Murphy 03/28/2024 1 [facility] Carlos Eduardo Viera [id number] Ingrid Murphy 05/31/2024 1 [facility] [id number] Ingrid Murphy [id number] Ingrid Murphy 05/31/2024 2 *SELF PAY* Rosalinda Murphy Notes Date Note Type Note Provider Name and Address Organization Details Recorded Time 03/01/2024 text/html Ingrid is a 34 y/ o G0 who presents to the clinic with her to discuss family planning. Couple have been trying for over 2 years, the duration of there marriage. Patient reports regular periods and that her and have been intentional about sexual intercourse during ovulatory time. Patient reports increasing abdominal pain with periods and starting to have pain with intercourse. She denies abnormal vaginal discharge, fever/chills, nausea/vomiting. She has a hx of hemorrhoidal surgery, but other cortez no abdominal procedures. Patient reports that she is taking daily folic accid Janel Decker MD Attn: Accounting,[address] [place], [address], [facility] 03/20/2024 00:13:42 03/28/2024 text/html Ingrid is a 34 y/ o G0 who presents to the clinic with her for follow-up discussion onfamily planning. Couple have been trying for over 2 years, the duration of there marriage. Review of labs consistent with thrombocytopenia that is most likely idiopathic. Patient vaginal swabs were positive for bacterial vaginosis and Jennifer which were adequately treated. Patient has undergone semen analysis earlier today. Janel Decker MD Attn: Accounting,[address] [facility], [place], [address], [facility] - [facility] 04/09/2024 13:45:55 05/31/2024 text/html 34 yo F presents to clinic for SOB and palpitations with exertion for last 3 weeks. Mainly with walking, washing dishes, etc. Does not happen every time or every day but multiple times a week. This is new for her. Came on suddenly and there was no inciting factor. When it happens, it almost feels like she has to cough.No chest pain. They are trying to conceive for 3 years and that has been stressful for her. There has been a lot of testing done in the last few weeks and that has been stressful. Had HSG yesterday which showed possibly blocked right fallopian tube. Jazmin Ferro MA [facility], [place] - [facility] 06/08/2024 11:47:40 OBGyn Episode No OBEpisode recorded.
--- OUTSIDE RECORDS SUMMARY | 2024-08-12 09:32 | XMS_ITS | Referral Summary ---
Author Organization [facility] Healthcare Address [address] [place] [address] Care Team Providers Care Medical Technologist Hematology Name Role Phone Unknown, Notinfile Primary Care Provider Unavail able Encounters Date Type Department Care Team Description 05/30/2024 9:20 AM NITRATING ACID MIXER - 05/30/2024 11:59 PM NITRATING ACID MIXER Hospital Encounter [facility] Counts include 234 beds at the [facility] [place] [address] Primary female infertility Discharge Disposition: Discharge to home or self care from Last 3 Months Allergies No known active allergies Social History Tobacco Use Types Packs/Day Years Used Date Smoking Tobacco: Never Assessed Comments Unknown Sex and Gender Information Value Date Recorded Sex Assigned at Not on file Legal Sex Female 11:06 AM CDT Gender Identity Not on file Sexual Orientation Not on file Plan of Treatment Not on file Procedures Procedure Name Priority Date/Time Associated Diagnosis Comments HYSTEROSALPINGOGRAM Schedule Routine, Read Routine (OP Routine) 05/30/2024 10:39 AM NITRATING ACID MIXER Primary female infertility POCT HCG, URINE Routine 05/30/2024 9:36 AM NITRATING ACID MIXER from Last 3 Months Results * FL Hysterosalpingogram (05/30/2024 10:39 AM NITRATING ACID MIXER) Anatomical Region Laterality Modality Body, Pelvis N/A Radio Fluoroscop y 05/30/2024 11:0 8 AM NITRATING ACID MIXER Impressions 05/30/2024 12:10 PM NITRATING ACID MIXER Nonopacified right fallopian tube. Otherwise, normal hysterosalpingogram. Dictated by: Alayna Orellana M.D. The radiology attending physician has personally reviewed this study, and had reviewed and/or edited this written report and agrees with it. Electronically signed by: Sara Youssef M.D. Narrative 05/30/2024 12:10 PM NITRATING ACID MIXER EXAMINATION: HYSTEROSALPINGOGRAM HISTORY: 34 year old woman, on day 8 of her menstrual cycle. Diagnostic evaluation of the fallopian tubes and uterine cavity for infertility. TECHNIQUE: Using sterile technique, a speculum was inserted into the vagina and the cervix swabbed with Betadine solution. A hysterocatheter was placed and Conray 60 was injected into the uterus. Fluoroscopic images of the pelvis were obtained. The patient tolerated the procedure well without complication. Dr. Sara Youssef M.D., the attending radiologist, was present from the beginning to the end of the procedure. FINDINGS: Endocervical canal: The endocervical canal is normal in appearance. Uterus: The uterus demonstrates neutral version. There are no filling defects, and the uterine contour is normal. Fallopian tubes: The left fallopian tube is normal in contour, with peritoneal spillage. The right fallopian tube is not opacified on this examination. Procedure Note Sara Youssef MD - 05/30/2024 EXAMINATION: HYSTEROSALPINGOGRAM HISTORY: 34 year old woman, on day 8 of her menstrual cycle. Diagnostic evaluation of the fallopian tubes and uterine cavity for infertility. TECHNIQUE: Using sterile technique, a speculum was inserted into the vagina and the cervix swabbed with Betadine solution. A hysterocatheter was placed and Conray 60 was injected into the uterus. Fluoroscopic images of the pelvis were obtained. The patient tolerated the procedure well without complication. Dr. Sara Youssef M.D., the attending radiologist, was present from the beginning to the end of the procedure. FINDINGS: Endocervical canal: The endocervical canal is normal in appearance. Uterus: The uterus demonstrates neutral version. There are no filling defects, and the uterine contour is normal. Fallopian tubes: The left fallopian tube is normal in contour, with peritoneal spillage. The right fallopian tube is not opacified on this examination. IMPRESSION: Nonopacified right fallopian tube. Otherwise, normal hysterosalpingogram. Dictated by: Alayna Esteban, M.D. The radiology attending physician has personally reviewed this study, and had reviewed and/or edited this written report and agrees with it. Electronically signed by: Sara Youssef M.D. Janel Burger MD IMG FLUOROSCOPY PROCEDURES Final Result * POCT hCG, urine (05/30/2024 9:36 AM NITRATING ACID MIXER) HCG, ur, POC Negative Negative Lot Number [id number] QC Backgroud Clear Acceptable QC Control Line Acceptable Urine 05/30/2024 9:36 AM NITRATING ACID MIXER Janel Burger MD POINT OF CARE TEST ORDERABL ES Final Result from Last 3 Months Insurance [employer] [facility] H[employer]/PPO Address: [address] [address] [employer] [facility] [employer]/PPO Address: [facility] [address] [place] [address] Care Teams Medical Technologist Hematology Relationship Specialty Start Date End Date Unknown, Notinfile PCP - General 05/30/24
--- OUTSIDE RECORDS SUMMARY | 2024-08-12 09:32 | XMS_ITS | Data Portability ---
Author Organization [facility] [place] Address [address] [place] [address] Assessment Encounter Date Assessment Date Assessment LastModified by Organization Details LastModified Time 06/30/2024 06/30/2024 discussed starting letrozole pending semen analysis results will start checking lh kits and check progesterone with cycles discussed chances of conceiving, letrozole se risks and benefits including ovarian hyperstimulatio n. thyroid a little elevated for and fertility, will rpt today also will check [facility] handouts given and questions answered consider sanaz consult if no in the next couple of months Not available 06/30/2024 11:43:36 Plan of Treatment Reminders Order Date Submit Date Provider Last Modified By Organization Details Last Modified Time Details Appointments None recorded. Lab TSH, serum or plasma 2024 025 [email or web address] 1 [facility] (Lab), [address] [facility], [place], [address], 5 21:00:08 anti-mulle hormone (amh), serum 2024 025 [facility] (Lab), [address] [place], [address], 5 04:46:32 TSH, serum or plasma 2024 025 [facility] (Lab), [address] [place], [address], 5 04:46:32 Referral None recorded. Procedures None recorded. Surgeries None recorded. Imaging None recorded. Medication Orders letrozole 2.5 mg tablet 2024 025 [facility], [address] [place] [address], [id number], 13:55:17 Patient TargetsNo targets recorded. Patient InstructionsNo instructions recorded. Reason for Referral None Reported. Results Created Date Observation Date Name Description Value Unit Range Abnormal Flag Note LastModifiedBy Organization Detail LastModifiedTime 07/19/1907/19/2024 PROGE STERO NE progesterone 1.00 NG/mL This assay was perfo rmed using [employer] ratio n reage nts and test kits. Value s obtai rolanda with other assay metho ds or kits canno t be used inter tellez eably . Femal e Proge stero ne Range s: Folli cular phase 0.06- 0.89 ng/mL Ovula tion phase 0.12- 12.00 ng/mL Lutea l phase 1.83- 23.90 ng/mL Postm enopa usal <0.05 -0.13 ng/mL Healt hy Pregn ant Women 1st Trime ster 11.0- 44.30 2nd Trime ster 25.40 -83.3 0 3rd Trime ster 58.70 -214. 00 Not Available [facility] (Lab) [address] [facility], [place], [address], 07/20/2024 15:44:30 Result Notes None recorded. Procedures Surgical History Date Name Laterality Status Provider Name and Address Organization Details Recorded Time 025 hysterosalpingography completed Isabela Orozco [facility] 06/13/2024 14:25:01 012 [facility]rho[facility]ctomy [facility]/13[facility] 14:24:24 Imaging Results None recorded. Procedure Notes None recorded. Medical Equipment None Reported. Allergies No known drug allergies Medications Name Sig Start Date Stop Date Status Note LastModified by Organization Details LastModified Time fluconazole 150 mg tablet TAKE ONE TABLET BY MOUTH FOR INFECTION 06/12 completed Not Available Not Available Not Available metronidazo le 500 mg tablet TAKE 1 TABLET BY MOUTH TWICE DAILY FOR 7 DAYS FOR INFECTION 06/12 completed Not Available Not Available Not Available letrozole 2.5 mg tablet TAKE TWO TABLETS EVERY DAY FOR 5 DAYS ON DAYS 3-7 OF MENSTRUAL CYCLE DIRECTED active Not Available Not Available No t Available Vitals Date Recorded Body weight Body mass index (BMI) Body height Systolic blood pressure Diastolic blood pressure Provider Name and Address Organization Details Last Updated DateTime 06/12/2024 20066.79 g 18.8 kg/m2 160.02 cm 106 mm[Hg] 71 mm[Hg] Jessica Chavarria [facility] 12:51:18 Date Recorded Body height Body mass index (BMI) Body weight Systolic blood pressure Diastolic blood pressure Provider Name and Address Organization Details Last Updated DateTime 06/30/2024 160.02 cm 18.4 kg/m2 34335.61 g 102 mm[Hg] 68 mm[Hg] Isabela Orozco [facility] 11:01:38 Social History Question Answer Notes LastModified by Organizat ion Details LastModified Time Tobacco Smoking Status Unknown If Ever Smoked Isabela Orozco [facility] 06/30/2024 11:02:32 What Is Your Level Of Alcohol Consumption? Occasional [email or web address] Information not available 06/30/2024 Are You Blind Or Do You Have Difficulty Seeing? No [email or web address] Information not available 06/12/2024 What Is Your Level Of Caffeine Consumption? Occasional [email or web address] Information not available 06/30/2024 In The 14 Days Before Symptom Onset, Have You Had Close Contact With A Laboratory-confir med COVID-19 While That Case Was Ill? No [email or web address] Information not available 06/12/2024 In The 14 Days Before Symptom Onset, Have You Had Close Contact With A Person Who Is Under Investigation For COVID-19 While That Person Was Ill? No [email or web address] Information not available 06/12/2024 Have You Been To An Area Known To Be High Risk For COVID-19? No [email or web address] Information not available 06/12/2024 Are You Deaf Or Do You Have Serious Difficulty Hearing? No [email or web address] Information not available 06/12/2024 Do You Use Your Seat Belt Or Car Seat Routinely? Yes [email or web address] Information not available 06/12/2024 Are You Sexually Active? Yes [email or web address] Information not available 06/12/2024 Do You Have Smoke And Carbon Monoxide Detectors In Your Home? Yes [email or web address] Information not available 06/12/2024 Do You Use Any Illicit Or Recreational Drugs? No Information not available 06/12/2024 Do You Use Sunscreen Routinely? Yes [email or web address] Information not available 06/12/2024 Has Tobacco Cessation Counseling Been Provided? No [email or web address] Information not available 06/30/2024 Do You Or Have You Ever Used Any Other Forms Of Tobacco Or Nicotine? No [email or web address] Information not available 06/30/2024 Sex: Unknown Functional Status Question Answer Note LastModified by Organizat ion Details LastModified Time Do you have difficulty walking or climbing stairs? No [email or web address] Information not available 06/12/2024 Are you able to walk? YESWOREST [email or web address] Information not available 06/12/2024 Are you able to care for yourself? Yes [email or web address] Information not available 06/12/2024 Do you have difficulty dressing or bathing? No [email or web address] Information not available 06/12/2024 Mental Status None recorded. Family History Relationship Description Onset Age of this Age Resolved Age Notes LastModified by Organization Details LastModified Time Mother Anemia [email or web address] Not available 06/12/2024 12:45:31 Medical History Condition Response Allergies (Food, seasonal, environmental ) N Other N Drug/Latex Allergies/Reactions N Breast Cancer N Blood Transfusion N Dermatologic Disorders N Lung Disease N Defects or Inherited Disease N Breast Problem N Gestational Diabetes N Hematologic disorders N Anesthesia Complications N History of STI N Deep Vein Thrombosis N Polycystic ovary syndrome N Anxiety Disorder N Autoimmune disease N Arthritis N Polyps N Infertility Y Acid Reflux (GERD) N History of abnormal pap N Cancer N Varicosities N Stroke N Neurologic/Epilepsy N Endometriosis N High Cholesterol N Fibromyalgia N Headaches N Kidney Disease N Heart Problems N Thyroid Problems N Kidney or Bladder Problems N GI Problems Y Eating Disorder N Anemia N Art (IVF or FET) N Psychiatric Illness N Ovarian Cancer N Diabetes N Pulmonary (TB, Asthma) N Hepatitis/Liver Disease N No Past Medical History N Eczema N Urinary Tract Infection N Abuse/Domestic Violence N Asthma N Trauma/Violence N Depression/ depression N Heart Disease N Pre-Eclampsia N Hypertension N Osteoporosis N Thrombophilias N Gynecological History Statement/Question Response Flow Moderate Date of LMP 06/25/2024 Was last menstrual period normal Y STIs/STDs N Duration of Flow (days) 5 Current Control Method Seeking Pre gnancy Are cycles usually normal Y Date of Last Colonoscopy Frequency of Cycle (Q days) 28 Sexually Active? Y Menses Monthly Y Date of DEXA bone scan Date of Last Pap Smear Sexual Problems? N LMP Approximate Obstetrics History GPAL:G 0 P 0 0 0 0 Type Value Living 0 Total 0 Past Encounters Encounter ID Performer Location Encounter Start Date Encounter Closed Date Diagnosis/Indication Diagnosis SNOMED-CT Code Diagnosis ICD10 Code Diagnosis Note [id number] Mark Álvarez MD [place] [address] [address] 06/12/2024 12:06:39 06/12/2024 16:39:43 Female infertility 9477908 N97.9 this patient is a 34-year-ol d female who presents for infertilit y concerns. Her and her have been trying for 2 years to get . They time intercours e. Patient had a evaluation for infertilit y. She has a hysterosal pingogram that showed an obstructed tube on the right side. The patient appears to ovulate regularly. She has a period about every 4 weeks. She has premenstru al symptoms. The consult has had a semen analysis. The results are unknown. Patient is eager to get . We talked about our infertilit y program and the surfaces we provide. I spent over 20 minutes on the patient's care. We discussed radiology results, laboratory results, treatment options. The etiology, natural history, treatment infertilit y unspecifie d. [id number] Shandra Gee CNM [place] [address] [address] 06/30/2024 09:41:17 06/30/2024 11:49:32 Female infertility 5128681 N97.9 Trying to conceive 21738 9001 Z31.9 Health Concerns Section Related Observation LastModified by Organization Detai ls LastModified Time None Recorded Concern Status LastModified by Organization Details LastModified Time None Recorded Advance Directives Directive None Recorded Payers Encounter Date Sequence Insurance Name Policy Number Policy Lui Covered Member ID Lui Member ID Guarantor Name 06/12/2024 1 [facility] Ingrid Murphy [id number] Ingrid Murphy 06/30/2024 1 [facility] Ingrid Murphy [id number] Ingrid Murphy Notes Date Note Type Note Provider Name and Address Organization Details Recorded Time 5 text/html this patient is a 34-year-old female who presents for infertility concerns. Her and her have been trying for 2 years to get . They time intercourse. Patient had a evaluation for infertility. She has a hysterosalpingogram that showed an obstructed tube on the right side. The patient appears to ovulate regularly. She has a period about every 4 weeks. She has premenstrual symptoms. The consult has had a semen analysis. The results are unknown. Patient is eager to get . We talked about our infertility program and the surfaces we provide. I spent over 20 minutes on the patient's care. We discussed radiology results, laboratory results, treatment options. The etiology, natural history, treatment infertility unspecified. Mark Álvarez MD [address], [place], [address], [facility] 06/12/2024 16:25:49 5 text/html pt and at visithave been trying to conceive x 3 years since marriedhas had some work up done at [facility], semen analysis is done and we are waiting for a copyreviewed labs on pt portal, fsh and lh wnl, tsh 4, no amh doneregular cycleshaving increased discharge during ovulationhas not tried lh kit yetHSG done and has blockage in her right fallopian tube Shandra Gee CNM [address], [place], [address], [facility] 06/30/2024 11:43:41 OBGyn Episode No OBEpisode recorded.
--- OUTSIDE RECORDS SUMMARY | 2024-08-12 09:33 | XMS_ITS | Clinical Summary ---
Author Organization [facility] Healthcare Address [address] [place] [address] Care Team Providers Care Posting Specialist Name Role Phone Unknown, Notinfile Primary Care Provider Unavail able Allergies No known active allergies Encounters Date Type Department Care Team Description 05/30/2024 9:20 AM TELECOMMUNICATIONS SALES REPRESENTATIVE - 05/30/2024 11:59 PM TELECOMMUNICATIONS SALES REPRESENTATIVE Hospital Encounter [facility] [address] [place], [place] [id number] Primary female infertility Discharge Disposition: Discharge to home or self care from Last 3 Months Social History Tobacco Use Types Packs/Day Years Used Date Smoking Tobacco: Never Assessed Comments Unknown Sex and Gender Information Value Date Recorded Sex Assigned at Not on file Legal Sex Female 11:06 AM CDT Gender Identity Not on file Sexual Orientation Not on file Plan of Treatment Health Maintenance Due Date Last Done Comments Cervical Cancer Screening 1989 Depression Screening 1989 Hepatitis C Screening 1989 DTaP/Tdap/Td Vaccine (1 - Tdap) 02/02/2000 Varicella Vaccines (1 of 2 - 13+ 2-dose series) 2002 Hepatitis B Screening 2007 Regular Well Visit/Exam 18-64 2007 Influenza Vaccine (#1) 2024 HPV Vaccines Aged Out No longer eligi ble based on patient's age to complete this topic Pneumococcal vaccine <65 Aged Out No longer eligible based on patient's age to complete this topic Procedures Procedure Name Priority Date/Time Associated Diagnosis Comments HYSTEROSALPINGOGRAM Schedule Routine, Read Routine (OP Routine) 05/30/2024 10:39 AM TELECOMMUNICATIONS SALES REPRESENTATIVE Primary female infertility POCT HCG, URINE Routine 05/30/2024 9:36 AM TELECOMMUNICATIONS SALES REPRESENTATIVE from Last 3 Months Results * [place] Hysterosalpingogram (05/30/2024 10:39 AM TELECOMMUNICATIONS SALES REPRESENTATIVE) Anatomical Region Laterality Modality Body, Pelvis N/A Radio Fluoroscop y 05/30/2024 11:0 8 AM TELECOMMUNICATIONS SALES REPRESENTATIVE Impressions 05/30/2024 12:10 PM TELECOMMUNICATIONS SALES REPRESENTATIVE Nonopacified right fallopian tube. Otherwise, normal hysterosalpingogram. Dictated by: Alayna Orellana M.D. The radiology attending physician has personally reviewed this study, and had reviewed and/or edited this written report and agrees with it. Electronically signed by: Sara Youssef M.D. Narrative 05/30/2024 12:10 PM TELECOMMUNICATIONS SALES REPRESENTATIVE EXAMINATION: HYSTEROSALPINGOGRAM HISTORY: 34 year old woman, [...] it. Electronically signed by: Sara Youssef M.D. us Janel Burger MD IMG FLUOROSCOPY PROCEDURES Final Result * POCT hCG, urine (05/30/2024 9:36 AM TELECOMMUNICATIONS SALES REPRESENTATIVE) HCG, ur, POC Negative Negative Lot Number [id number] QC Backgroud Clear Acceptable QC Control Line Acceptable Urine 05/30/2024 9:36 AM TELECOMMUNICATIONS SALES REPRESENTATIVE us Janel Burger MD POINT OF CARE TEST ORDERABL ES Final Result from Last 3 Months Insurance [facility]PPO Address: [facility] [address] [place] [address] [facility] [employer] [facility] Address: [facility] [address] [place] [address] Care Teams Posting Specialist Relationship Specialty Start Date End Date Unknown, Notinfile PCP - General 05/30/24
[2024-08-14 14:13] LABS: Progesterone 2.9 ng/mL
== END 2024-08-12 09:29 | disposition home or self-care (01) ==
PROVIDERS: Visit Provider Advanced Practice Midwife
DX: Z31.9 Encounter for procreative management, unspecified (principal)
CPT/HCPCS: 36415; 84144